=== PATIENT | male | born 1990 | race Caucasian/White ===

== ENCOUNTER 2020-11-12 11:07 | Inpatient (IN) | payer OTHER ==
[~2020-11-12] VITALS: Ht 190.5 cm; Wt 150.1 kg
[2020-11-12 12:10] LABS: BILIRUBIN 1+ mg/dL (NEGATIVE); BLOOD NEGATIVE Ery/uL (NEGATIVE); CLARITY CLEAR (CLEAR); COLOR YELLOW (YELLOW); GLUCOSE (U) NORMAL (NORMAL); LEUKOCYTES NEGATIVE Leu/uL (NEGATIVE); NITRITE NEGATIVE (NEGATIVE); PROTEIN TRACE (LOW) mg/dL (NEGATIVE); SPECIFIC GRAVITY 1.025 (1.001-1.030); UROBILINOGEN 0.2 mg/dL (0.2-1.0)
[2020-11-12 12:19] LABS: BACTERIA TRACE; SQUAMOUS EPITHELIAL CELLS RARE
[2020-11-12 12:59] LABS: BASOPHIL 0.5 % (0-2); EOSINOPHIL 4.2 % (0-5); HCT 47.2 % (42.0-52.0); HGB 14.7 g/dl (13.2-18.0); LYMPHOCYTE 15.1 % (15-48); MCH 24.5 pg (25.0-31.0); MCHC 31.1 g/dL (32.0-36.0); MCV 78.5 fL (78.0-100.0); MPV 10.1 fL (6.0-9.5); NEUTROPHIL 68.4 % (41-80); NRBC 0; PLT 408 K/uL (150-400); RBC 6.01 M/uL (4.70-6.00); RDW 14.6 % (11.5-14.0); WBC 14.7 K/uL (4.0-10.5)
[2020-11-12 13:09] LABS: LACTIC ACID 1.1 mmol/L (0.4-1.9)
[2020-11-12 14:04] LABS: BILIRUBIN 1+ mg/dL (NEGATIVE); BLOOD NEGATIVE Ery/uL (NEGATIVE); CLARITY CLEAR (CLEAR); COLOR YELLOW (YELLOW); GLUCOSE (U) NORMAL (NORMAL); LEUKOCYTES NEGATIVE Leu/uL (NEGATIVE); NITRITE NEGATIVE (NEGATIVE); PROTEIN TRACE (LOW) mg/dL (NEGATIVE); SPECIFIC GRAVITY 1.025 (1.001-1.030); UROBILINOGEN 0.2 mg/dL (0.2-1.0); pH 6.5 (5.0-9.0)
[2020-11-12 14:13] LABS: SQUAMOUS EPITHELIAL CELLS RARE; URINARY RBC RARE
[2020-11-12 14:37] LABS: ALBUMIN 3.5 g/dL (3.4-5.0); BILIRUBIN - TOTAL 0.5 mg/dL (0.2-1.0); BUN/CREAT RATIO (CALC) 9.4 RATIO; CREATININE 1.17 mg/dL (0.67-1.17); GLOBULIN (CALCULATION) 5.7 g/dL; POTASSIUM 4.2 mmol/L (3.5-5.1); TOTAL PROTEIN 9.2 g/dL (6.4-8.2)
[2020-11-13 06:08] LABS: BASOPHIL 0.8 % (0-2); EOSINOPHIL 8.3 % (0-5); HCT 39.2 % (42.0-52.0); LYMPHOCYTE 19.1 % (15-48); MCH 24.3 pg (25.0-31.0); MCHC 30.6 g/dL (32.0-36.0); MCV 79.5 fL (78.0-100.0); MONOCYTE 11.2 % (0-12); MPV 10.1 fL (6.0-9.5); NEUTROPHIL 59.4 % (41-80); NRBC 0; PLT 312 K/uL (150-400); RBC 4.93 M/uL (4.70-6.00); RDW 14.6 % (11.5-14.0); WBC 9.1 K/uL (4.0-10.5)
[2020-11-13 06:34] LABS: BUN/CREAT RATIO (CALC) 7.4 RATIO; CREATININE 1.22 mg/dL (0.67-1.17); POTASSIUM 3.9 mmol/L (3.5-5.1)
--- NOTE | 2020-11-13 14:36 | NUR ---
11/13/20 Mr. Sommers lives at home with his roommate. He is independent in the home and community. They are supported by the roommate's income. No discharge planning needs are anticipated.
[2020-11-14 05:49] LABS: BASOPHIL 0.7 % (0-2); EOSINOPHIL 8.9 % (0-5); HCT 38.9 % (42.0-52.0); LYMPHOCYTE 16.6 % (15-48); MCH 24.4 pg (25.0-31.0); MCHC 30.8 g/dL (32.0-36.0); MCV 79.2 fL (78.0-100.0); MONOCYTE 9.7 % (0-12); NEUTROPHIL 63.1 % (41-80); NRBC 0; PLT 314 K/uL (150-400); RBC 4.91 M/uL (4.70-6.00); RDW 14.4 % (11.5-14.0); WBC 8.2 K/uL (4.0-10.5)
[2020-11-14 06:05] LABS: ALBUMIN 2.7 g/dL (3.4-5.0); BILIRUBIN - TOTAL 0.5 mg/dL (0.2-1.0); CREATININE 1.17 mg/dL (0.67-1.17); GLOBULIN (CALCULATION) 4.5 g/dL
[2020-11-14 06:06] LABS: TOTAL PROTEIN 7.2 g/dL (6.4-8.2)
[2020-11-14] MEDS ORDERED: LEVAQUIN750 MG PO (12:43)
[2020-11-14] MEDS ORDERED: METRONIDAZOLE500 MG PO (12:43)
[2020-11-14] MEDS ORDERED: ZOFRAN4 M1 PO (12:58)
== END 2020-11-14 13:29 | disposition home or self-care (01) | DRG 372 ==
LOC: FER 11:07 → FTCU 16:16 → FMS 11-13 10:32
PROVIDERS: Emergency Medicine; ADMIT Internal Medicine
DX: K35.32 Acute appendicitis with perforation, localized peritonitis, and gangrene, without abscess (principal); Z68.41 Body mass index [BMI] 40.0-44.9, adult; G89.29 Other chronic pain; E66.9 Obesity, unspecified; Z20.822 Contact with and (suspected) exposure to COVID-19; I51.7 Cardiomegaly; K21.9 Gastro-esophageal reflux disease without esophagitis; K29.80 Duodenitis without bleeding; Z98.890 Other specified postprocedural states
CPT/HCPCS: 36415; 80048; 80053; 81001; 83540; 83550; 83605; 83735; 83993; 84145; 85025; 87045; 87046; J1650; J1885; J2270; J2405; J2543; J7030; Q9967; U0002

== ENCOUNTER → 2020-12-28 | Day surgery (SDC) | payer OTHER ==
[~2020-12-28] VITALS: Ht 190.5 cm; Wt 136.1 kg
[~2020-12-28] MED LIST: LEVAQUIN750 MG PO; METRONIDAZOLE500 MG PO; ZOFRAN4 M1 PO
== END | disposition home or self-care (01) ==
LOC: FAS 07:14
DX: K52.9 Noninfective gastroenteritis and colitis, unspecified (principal); K62.89 Other specified diseases of anus and rectum; K37 Unspecified appendicitis; K21.9 Gastro-esophageal reflux disease without esophagitis; F41.9 Anxiety disorder, unspecified; F32.9 Major depressive disorder, single episode, unspecified
CPT/HCPCS: J2250; J2704; J7120